=== PATIENT | female | born 1980 | race Caucasian/White ===

== ENCOUNTER 2016-08-01 08:42 | Inpatient (IN) | payer OTHER ==
[~2016-08-01] VITALS: Ht 170.1 cm; Wt 84.1 kg
[2016-08-01 09:40] VITALS: BP 118/70
[2016-08-01 09:45] VITALS: BP 118/70
[2016-08-01 10:46] LABS: BASO # 0.1 10*3/uL (0.0-0.1); BASO % 0.8 % (0.0-1.0); EOS # 0.1 10*3/uL (0.0-0.4); EOS % 1.7 % (1.0-4.0); HEMATOCRIT 37.4 % (37.0-47.0); HEMOGLOBIN 12.2 g/dl (12.0-16.0); LYMPH # 1.5 10*3/uL (1.3-4.4); LYMPH % 19.8 % (27.0-41.0); MEAN CELL VOLUME 93.5 fl (81.0-99.0); MEAN CORPUSCULAR HGB 30.5 pg (27.0-31.0); MEAN CORPUSCULAR HGB CONC 32.6 g/dl (33.0-37.0); MEAN PLATELET VOLUME 10.6 fl (9.6-12.3); MONO # 0.4 10*3/uL (0.1-1.0); MONO % 5.9 % (3.0-9.0); NEUT # 5.3 10*3/uL (2.3-7.9); NEUT % 71.5 % (47.0-73.0); PLATELET COUNT AUTOMATED 230 10*3/uL (130-400); RED CELL DISTRI WIDTH 13.4 % (0-14.5); WHITE BLOOD COUNT 7.5 10*3/uL (4.8-10.8)
[2016-08-01 10:53] LABS: BILIRUBIN NEGATIVE (NEGATIVE); BLOOD NEGATIVE (NEGATIVE); CLARITY SL CLOUDY (CLEAR); COLOR STRAW (YELLOW); GLUCOSE NEGATIVE (NEGATIVE); KETONE NEGATIVE (NEGATIVE); LEUKO ESTERASE NEGATIVE (NEGATIVE); NITRITE NEGATIVE (NEGATIVE); PROTEIN NEGATIVE (NEGATIVE); SPECIFIC GRAVITY <= 1.005 (1.005-1.030); UROBILINOGEN 0.2 E.U./dl (0.2-1.0)
[2016-08-01 10:53] LABS: INTERNATIONAL NORM RATIO 0.9 (2.0-3.5)
[2016-08-01 11:01] LABS: URINE AMPHETAMINES < 1000 (1000ng/ml); URINE BARBITURATES < 200 (200ng/ml); URINE COCAINE > 300 (300ng/ml)
[2016-08-01 11:02] LABS: ALBUMIN 3.5 gm/dl (3.1-4.5); ALKALINE PHOSPHATASE 64 U/L (45-117); BILIRUBIN, TOTAL 0.2 mg/dl (0.2-1.0); BUN 10 mg/dl (7-24); CARBON DIOXIDE 30 mmol/L (21-32); CHLORIDE 107 mmol/L (98-107); EST GLOM FILT AFRICAN AMERICAN > 60 ml/min; GLUCOSE 89 mg/dL (65-99); SGOT/AST 8 IU/L (3-35); SGPT/ALT 16 U/L (12-78); SODIUM 140 mmol/L (136-145); TOTAL PROTEIN 7.2 gm/dL (6.4-8.2)
[2016-08-01 11:08] LABS: BACTERIA TRACE; URINE REFLEX COMMENT NO (NO)
[2016-08-01 12:00] VITALS: BP 125/71
[2016-08-01 20:00] VITALS: BP 110/54
[2016-08-02] VITALS: BP 115/53
[2016-08-02 04:00] VITALS: BP 84/61
[2016-08-02 06:12] LABS: HEPATITIS C VIRUS ANTIBODY <0.1 s/co (0.0-0.9); HIV 1+2 AB + HIV1 P24 AG Non Reactive (Non Reactive)
[2016-08-02 08:00] VITALS: BP 110/53
[2016-08-02 12:00] VITALS: BP 105/59
[2016-08-02 16:00] VITALS: BP 114/56
[2016-08-02 20:00] VITALS: BP 124/83
[2016-08-03] VITALS: BP 98/56
[2016-08-03 08:00] VITALS: BP 90/45
[2016-08-03 12:00] VITALS: BP 97/54
[2016-08-03 16:00] VITALS: BP 116/67
[2016-08-03 20:00] VITALS: BP 102/59
[2016-08-04] VITALS: BP 90/52
[2016-08-04 08:00] VITALS: BP 97/56
[2016-08-04] MEDS ORDERED: THERA TABS1 TAB PO (10:23)
[2016-08-04] MEDS ORDERED: NATURE'S BLEND F1 MG PO (10:23)
[2016-08-04] MEDS ORDERED: SINEMET 25-1001 TA1 PO (10:23)
[2016-08-04] MEDS ORDERED: ATARAX,VISTARIL50 MG PO (10:23)
[2016-08-04] MEDS ORDERED: METHOCARBAMOL750 M1 PO (10:23)
[2016-08-04] MEDS ORDERED: VITAMIN B-11 TAB PO (10:23)
== END 2016-08-04 10:42 | disposition home or self-care (01) | DRG 897 ==
LOC: 5E 08:42
PROVIDERS: Internal Medicine
DX: F11.23 Opioid dependence with withdrawal (principal); F14.10 Cocaine abuse, uncomplicated; F17.210 Nicotine dependence, cigarettes, uncomplicated; Z71.6 Tobacco abuse counseling